=== PATIENT | male | born 1995 | race Asian ===

== ENCOUNTER 2020-01-27 06:28 | Day surgery (SDC) | payer BC ==
[2020-01-20 16:04] LABS: BASOPHILS # (AUTO) 0.1 X10'3 (0-0.2); BASOPHILS % (AUTO) 0.8 % (0-1); EOSINOPHILS # (AUTO) 0.2 X10'3 (0-0.9); EOSINOPHILS % (AUTO) 2.7 % (0-6); LYMPHOCYTES # (AUTO) 2.4 X10'3 (1.1-4.8); LYMPHOCYTES % (AUTO) 30.2 % (21-51); MEAN CORPUSCULAR HEMOGLOBIN 28.9 PG (27.0-31.0); MEAN CORPUSCULAR HGB CONC 33.9 g/dL (33.0-36.5); MEAN CORPUSCULAR VOLUME 85.4 FL (78-98); MONOCYTES # (AUTO) 0.5 X10'3 (0-0.9); MONOCYTES % (AUTO) 5.7 % (2-12); NEUTROPHILS # (AUTO) 4.9 X10'3 (1.8-7.7); NEUTROPHILS % (AUTO) 60.6 % (42-75); PRE OP HEMATOCRIT 45.8 % (42.0-52.0); PRE OP HEMOGLOBIN 15.5 g/dL (14.0-17.9); PRE OP PLATELET COUNT 233 X10'3 (140-440); RED BLOOD COUNT 5.36 X10'6 (4.70-6.10); RED CELL DISTRIBUTION WIDTH 12.7 % (11.5-14.5)
[2020-01-20 16:15] LABS: PRE OP PROTIME 10.6 SECONDS (9.0-12.0)
[2020-01-20 16:16] LABS: ALBUMIN 4.2 G/DL (3.4-5.0); ALBUMIN/GLOBULIN RATIO 1.2 (1.1-1.5); ALKALINE PHOSPHATASE 84 IU/L (46-116); BLOOD UREA NITROGEN 14 MG/DL (7-18); BUN/CREATININE RATIO 14.6 (5.4-32.0); CALCIUM 8.9 MG/DL (8.5-10.1); CHLORIDE 102 MMOL/L (99-107); CREATININE 0.96 MG/DL (0.60-1.10); PRE OP ALT 26 U/L (30-65); PRE OP ANION GAP 7 (8-16); PRE OP AST 15 U/L (10-37); PRE OP BILIRUB, TOTAL 0.8 MG/DL (0.0-1.0); PRE OP GLUCOSE 90 MG/DL (70-104); PRE OP POTASSIUM 3.9 MMOL/L (3.4-5.1); PRE OP SODIUM 140 MMOL/L (135-145); TOTAL CARBON DIOXIDE 31.2 MMOL/L (24-32); TOTAL PROTEIN 7.8 G/DL (6.4-8.2); eGFR > 90 ML/MIN
[2020-01-20 19:00] LABS: PLATELET FUNCTION (ADP) 149 SECONDS (63-104)
[~2020-01-27] VITALS: Ht 175.3 cm; Wt 98.5 kg
[2020-01-27] VITALS (8 sets, daily range): BP systolic 122–154; BP diastolic 77–94
[~2020-01-27 06:28] MED LIST: NO HOME MEDS; famotidine 20mg tablet PO ONE; oxymetazoline 15 ML nasal spray NS PRN; ringers solution, lacted 1,000 ML IV SCH
[2020-01-27] MEDS ORDERED: oxymetazoline 15 ML nasal spray NS ONE (06:51)
[2020-01-27] MEDS ORDERED: LIDOcaine 1% W/epiNEPHrine 1:100,000 20ml vial ONE (06:51)
[2020-01-27] MEDS ORDERED: cocaine 4% topical solution 4ml bottle ONE (06:51)
[2020-01-27] MEDS ORDERED: mupirocin 2% ointment 22GM ONE (06:51)
[2020-01-27] MEDS ORDERED: ceFAZolin 1000mg inj ONE (06:52)
[2020-01-27] MEDS ORDERED: cefTAZidime 1gm inj ONE (07:01)
[2020-01-27] MEDS ORDERED: fentaNYL/PF 50MCG/1 ML 2ML syringe ONE (07:57)
[2020-01-27] MEDS ORDERED: midazolam 2 mg/2 ml injection ONE ×2 (07:58)
[2020-01-27] MEDS ORDERED: propofol inj 20 ML IV ONE (07:59)
[2020-01-27] MEDS ORDERED: LIDOcaine 2% (20mg/ml) 5ml vial ONE (07:59)
[2020-01-27] MEDS ORDERED: ondansetron/PF 4mg/2ml inj ONE (07:59)
[2020-01-27] MEDS ORDERED: sevoflurane 250ml liquid IH ONE (08:00)
[2020-01-27] MEDS ORDERED: dexamethasone sod phosphate 10mg/ml inj ONE (08:00)
[2020-01-27] MEDS ORDERED: morphine 4 MG/ML inj SYRINge IV PRN (08:05)
[2020-01-27] MEDS ORDERED: morphine 2 MG/ML inj. syringe IV PRN (08:05)
[2020-01-27] MEDS ORDERED: fentaNYL/PF 50MCG/1 ML 2ML syringe IV PRN ×2 (08:05)
[2020-01-27] MEDS ORDERED: labetalol 20mg/4ml (5mg/ml) syringe IV PRN (08:05)
[2020-01-27] MEDS ORDERED: hydrALAZINE 20mg/ml inj. IV PRN (08:05)
[2020-01-27] MEDS ORDERED: ringers solution, lacted 1,000 ML IV SCH (08:05)
[2020-01-27] MEDS ORDERED: ondansetron/PF 4mg/2ml inj IV PRN (08:05)
--- NOTE | 2020-01-27 09:50 | NUR ---
Received from OR via BED , accompanied by Anesthesiologist DR PRATT and report given by Anesthesiolgist. PATIENT WAKING UP, DENIES PAIN, V/S WNL, CSM INTACT, 20G PIV TO RUE, COTTONOID PACKING TO BILATERALLY SINUSES WITH NO ACTIVE DRAINAGE VISABLE AT THIS TIME
[2020-01-27] MEDS ORDERED: salt irrigation nasal spray 45 ML SPRAY NS PRN (10:00)
--- NOTE | 2020-01-27 10:40 | NUR ---
PATIENT A&OX4, DENIES PAIN, V/S WNL, CSM INTACT, 20G PIV TO RUE D/C, COTTONOID PACKING TO BILATERALLY SINUSES REMOVED 30MIN AFTER ARRIVAL TO PACU WITH NO ACTIVE DRAINAGE VISABLE AT THIS TIME. PATIENT RECIEVED OCEAN SPRAY AND OINTMENT ORDERED. I HAVE REVIEWED D/C INSTRUCTIONS WITH PATIENT AND FAMILY AND THEY HAVE VERBALIZED UNDERSTANDING. PATIENT D/C HOME WITH ALL BELONGINGS AND FAMILY GAVE TRANSPORT HOME.
== END 2020-01-27 10:40 | disposition home or self-care (01) ==
LOC: PAS 06:28
PROVIDERS: ATTEND Otolaryngology
DX: J34.2 Deviated nasal septum (principal); J34.3 Hypertrophy of nasal turbinates; F41.9 Anxiety disorder, unspecified; Z79.899 Other long term (current) drug therapy; Z79.01 Long term (current) use of anticoagulants; Z20.828 Contact with and (suspected) exposure to other viral communicable diseases; Z87.891 Personal history of nicotine dependence; Z91.09 Other allergy status, other than to drugs and biological substances; Z98.890 Other specified postprocedural states; Z72.89 Other problems related to lifestyle
CPT/HCPCS: 30140; 30520; 36415; 80053; 82948; 85025; 85576; 85610; 85730; 87635; A6402; C9250; C9803; J0690; J0713; J1100; J2001; J2250; J2405; J2704; J3010; J7120; A4618; A7000